=== PATIENT | male | born 1980 | race Caucasian/White ===

== ENCOUNTER 2022-09-16 22:00 | Emergency (ER) | payer SELFPAY ==
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
[2022-09-16] MEDS ORDERED: DOXYCYCLINE 100 MG TABLET PO STA (22:41)
[2022-09-16 22:58] VITALS: BP 130/90
== END 2022-09-16 22:52 | disposition home or self-care (01) ==
LOC: ED 22:00
DX: L03.011 Cellulitis of right finger (principal); R23.8 Other skin changes
CPT/HCPCS: 99282; 99283; A9270